=== PATIENT | female | born 1965 | race Caucasian/White ===

== ENCOUNTER → 2017-03-16 | Outpatient (CLI) | payer MEDICARE, MEDICAID | LOC: LAB 14:18 | DX: R23.3 Spontaneous ecchymoses (principal) ==

== ENCOUNTER → 2017-03-31 | Outpatient (CLI) | payer MEDICARE, MEDICAID | LOC: RAD 14:13 | DX: M25.562 Pain in left knee (principal); M25.462 Effusion, left knee ==

== ENCOUNTER 2018-07-04 20:14 | Emergency (ER) | payer MEDICARE, MEDICAID ==
[~2018-07-04] VITALS: Ht 167.6 cm; Wt 64.5 kg
[2018-07-04] MEDS ORDERED: LAMICTAL200 M1 PO (20:27)
[2018-07-04] MEDS ORDERED: TRIAMTERENE AND1 CA1 (20:28)
[2018-07-04] MEDS ORDERED: SINGULAIR PO (20:28)
== END 2018-07-04 21:33 | disposition home or self-care (01) ==
LOC: ED 20:14
DX: S71.111A Laceration without foreign body, right thigh, initial encounter (principal); W25.XXXA Contact with sharp glass, initial encounter; Y92.000 Kitchen of unspecified non-institutional (private) residence as the place of occurrence of the external cause; R06.4 Hyperventilation; F17.200 Nicotine dependence, unspecified, uncomplicated

== ENCOUNTER → 2018-08-16 | Outpatient (CLI) | payer MEDICARE, MEDICAID ==
[~2018-08-16] MED LIST: LAMICTAL200 M1 PO; SINGULAIR PO; TRIAMTERENE AND1 CA1
[2018-08-16 16:18] LABS: EOS # 0.2 (0.04-0.40); EOS % 3.1 % (1.0-5.0); HEMATOCRIT 41.4 % (37.0-47.0); HEMOGLOBIN 14.4 g/dL (12.5-16.0); LYMPH# 1.2 (1.50-4.00); MEAN CELL VOLUME 88 fl (78-100); MEAN CORPUSCULAR HEMOGLOBIN 31 pg (27-31); MEAN CORPUSCULAR HGB CONC 35 g/dL (33-37); MEAN PLATELET VOLUME 8.1 fl (7.4-10.4); MONO # 0.8 (0.20-0.80); NEU # 5.6 (1.40-6.50); PLATELET COUNT 206 K/mm3 (130-400); RED BLOOD COUNT 4.69 M/mm3 (4.10-5.30); RED CELL DISTRIBUTION WIDTH 12.9 % (11.5-14.5); WHITE BLOOD COUNT 7.9 K/mm3 (4.8-10.8)
[2018-08-16 17:23] LABS: ERYTHROCYTE SEDIMENTATION RATE 30 mm/hr (0-20)
== END ==
LOC: LAB 15:56
PROVIDERS: Family Medicine
DX: M25.521 Pain in right elbow (principal); L03.113 Cellulitis of right upper limb; M79.639 Pain in unspecified forearm

== ENCOUNTER 2019-07-28 21:36 | Emergency (ER) | payer MEDICARE, MEDICAID ==
[~2019-07-28] VITALS: Ht 167.6 cm; Wt 65.9 kg
[2019-07-28] MEDS ORDERED: MECLIZINE PO (21:57)
[2019-07-28] MEDS ORDERED: TRIAMTERENE AND1 CAP PO (21:57)
[2019-07-28] MEDS ORDERED: PROAIR HFA0.09 MG/AC IH (21:58)
[2019-07-28 23:04] LABS: BASO # 0.1 (0.02-0.10); EOS # 0.4 (0.04-0.40); EOS % 6.9 % (1.0-5.0); HEMATOCRIT 39.5 % (37.0-47.0); HEMOGLOBIN 13.4 g/dL (12.5-16.0); LYMPH# 1.2 (1.50-4.00); MEAN CELL VOLUME 88 fl (78-100); MEAN CORPUSCULAR HEMOGLOBIN 30 pg (27-31); MEAN CORPUSCULAR HGB CONC 34 g/dL (33-37); MEAN PLATELET VOLUME 8.1 fl (7.4-10.4); MONO # 0.7 (0.20-0.80); PLATELET COUNT 244 K/mm3 (130-400); RED BLOOD COUNT 4.47 M/mm3 (4.10-5.30); RED CELL DISTRIBUTION WIDTH 13.2 % (11.5-14.5); WHITE BLOOD COUNT 6.4 K/mm3 (4.8-10.8)
[2019-07-28] MEDS ORDERED: CEPHALEXIN500 M1 PO (23:19)
[2019-07-28 23:44] VITALS: BP 169/98
== END 2019-07-28 23:44 | disposition home or self-care (01) ==
LOC: ED 21:36
PROVIDERS: Family Medicine
DX: L03.113 Cellulitis of right upper limb (principal); F41.9 Anxiety disorder, unspecified; Z98.890 Other specified postprocedural states

== ENCOUNTER → 2021-09-22 | Outpatient (CLI) | payer MEDICARE, MEDICAID ==
[~2021-09-22] MED LIST changes: +CEPHALEXIN500 M1 PO; +MECLIZINE PO; +PROAIR HFA0.09 MG/AC IH; +TRIAMTERENE AND1 CAP PO
== END ==
LOC: RAD 15:50
DX: M47.816 Spondylosis without myelopathy or radiculopathy, lumbar region (principal); M43.16 Spondylolisthesis, lumbar region

== ENCOUNTER 2022-04-19 04:10 | Emergency (ER) | payer MEDICARE, MEDICAID ==
[~2022-04-19] VITALS: Ht 170.2 cm; Wt 66.8 kg
[2022-04-19] MEDS ORDERED: HCTZ 25MG25 MG PO (04:29)
[2022-04-19] MEDS ORDERED: VOLTAREN 75 DR75 MG PO (04:29)
[2022-04-19] MEDS ORDERED: LAMOTRIGINE200 MG PO (04:29)
[2022-04-19] MEDS ORDERED: SINGULAIR 110 MG/TAB PO (04:30)
[2022-04-19 05:31] LABS: HEMATOCRIT 39.5 % (37.0-47.0); HEMOGLOBIN 13.7 g/dL (12.5-16.0); MEAN CELL VOLUME 91 fl (78-100); MEAN CORPUSCULAR HEMOGLOBIN 32 pg (27-31); MEAN CORPUSCULAR HGB CONC 35 g/dL (33-37); MEAN PLATELET VOLUME 8.5 fl (7.4-10.4); PLATELET COUNT 176 K/mm3 (130-400); RED BLOOD COUNT 4.35 M/mm3 (4.10-5.30); RED CELL DISTRIBUTION WIDTH 12.9 % (11.5-14.5); WHITE BLOOD COUNT 10.2 K/mm3 (4.8-10.8)
[2022-04-19 05:44] LABS: LYMPHOCYTE 9 % (20-51); MONOCYTE 8 % (3-10); NEUTROPHILS 83 % (42-75)
[2022-04-19 05:46] LABS: ALBUMIN 4.2 g/dL (3.5-5.0); POTASSIUM 3.7 mmol/L (3.5-5.1)
[2022-04-19 05:47] LABS: CALCIUM 9.3 mg/dL (8.3-10.5)
[2022-04-19 05:49] LABS: TOTAL PROTEIN 6.6 g/dL (6.4-8.3)
[2022-04-19 05:50] LABS: TOTAL BILIRUBIN 1.3 mg/dL (0.2-1.2)
[2022-04-19 06:43] LABS: ERYTHROCYTE SEDIMENTATION RATE 21 mm/hr (0-30)
[2022-04-19 11:17] LABS: PH-URINE 7.5 (5.0 - 8.0); URINE APPEARANCE CLOUDY; URINE BILIRUBIN NEGATIVE (NEGATIVE); URINE BLOOD NEGATIVE (NEGATIVE); URINE COLOR YELLOW; URINE GLUCOSE NEGATIVE (NEGATIVE); URINE KETONE NEGATIVE (NEGATIVE); URINE LEUKOCYTE ESTERASE NEGATIVE (NEGATIVE); URINE NITRATE NEGATIVE (NEGATIVE); URINE PROTEIN(semi-quant) NEGATIVE (NEGATIVE); URINE UROBILINOGEN NORMAL (NORMAL); URINE WBC 0-1 /hpf (0-3)
[2022-04-19 11:18] LABS: URINE MUCUS PRESENT (NOT PRESENT)
[2022-04-19] MEDS ORDERED: NORCO 325 MG-51 TA1 PO (11:53)
[2022-04-19] MEDS ORDERED: GABAPENTIN100 MG PO (11:53)
[2022-04-19] MEDS ORDERED: PREDNISONE20 M1 PO (11:53)
[2022-04-19] MEDS ORDERED: CYCLOBENZAPRINE10 M1 PO (11:53)
[2022-04-19 12:49] VITALS: BP 163/96
== END 2022-04-19 12:50 | disposition home or self-care (01) ==
LOC: ED 04:10
PROVIDERS: Family Medicine
DX: M54.50 Low back pain, unspecified (principal); F17.210 Nicotine dependence, cigarettes, uncomplicated
CPT/HCPCS: J1885; J2270; J2360; J2405

== ENCOUNTER → 2023-12-14 | Outpatient (CLI) | payer MEDICARE, MEDICAID ==
[~2023-12-14] MED LIST changes: +CYCLOBENZAPRINE10 M1 PO; +GABAPENTIN100 MG PO; +HCTZ 25MG25 MG PO; +LAMOTRIGINE200 MG PO; +NORCO 325 MG-51 TA1 PO; +PREDNISONE20 M1 PO; +SINGULAIR 110 MG/TAB PO; +VOLTAREN 75 DR75 MG PO
== END ==
LOC: RAD 14:53
DX: M25.531 Pain in right wrist (principal)